=== PATIENT | male | born 1990 | race Two or more races ===

== ENCOUNTER 2018-07-20 15:15 | Emergency (ER) | payer SELFPAY ==
[~2018-07-20] VITALS: Ht 175.3 cm; Wt 63.9 kg
[2018-07-20 15:29] VITALS: BP 124/88
--- NOTE | 2018-07-20 16:00 | RAD ---
THREE VIEWS RIGHT FINGER Clinical History: RT THUMB PAIN NO KNOWN INJURY Technique: AP view of the hand, as well as lateral and oblique collimated views of the thumb were obtained. Comparison: None. Findings: A true AP view of the thumb is not provided for review. There is no acute fracture or dislocation. There is no radiopaque foreign body. The soft tissues are normal. The mineralization is normal. Joint spaces are maintained. IMPRESSION: No acute bone abnormality. Electronically signed by: Ollie Larios MD (07/20/2018 3:57 PM) [id number]
== END 2018-07-20 15:54 | disposition left against medical advice (07) ==
LOC: ER 15:15
DX: S69.91XA Unspecified injury of right wrist, hand and finger(s), initial encounter (principal); Z53.21 Procedure and treatment not carried out due to patient leaving prior to being seen by health care provider; X58.XXXA Exposure to other specified factors, initial encounter; Y93.89 Activity, other specified; Y92.89 Other specified places as the place of occurrence of the external cause; Y99.8 Other external cause status
CPT/HCPCS: 73140; 99281; 99283

== ENCOUNTER 2018-07-22 08:31 | Emergency (ER) | payer SELFPAY ==
[~2018-07-22] VITALS: Ht 175.3 cm; Wt 63.5 kg
[2018-07-22 08:37] VITALS: BP 112/74
[2018-07-22] MEDS ORDERED: SULF1TAB24 PO (08:46)
[2018-07-22] MEDS ORDERED: MELO7.5T29 PO (08:46)
--- NOTE | 2018-07-22 08:46 | PHYS DOC ---
Past History Past Medical History: Asthma Past Surgical History: Tonsillectomy, Other Alcohol Use: None Drug Use: None Adult General Chief Complaint Chief Complaint: FINGER INJURY HPI HPI Patient is a 27-year-old male who presents with right thumb pain and swelling. This has been present for the past week and getting worse over time. Patient has been trying to treat it with warm compresses without any relief. There is now purulent drainage. No trauma. No fever. Increased pain with touch.[] Review of Systems Review of Systems Constitutional: Denies fever or chills [] Eyes: Denies change in visual acuity, redness, or eye pain [] HENT: Denies nasal congestion or sore throat [] Respiratory: Denies cough or shortness of breath [] Cardiovascular: No chest pain or palpitations[] GI: Denies abdominal pain, nausea, vomiting, bloody stools or diarrhea [] : Denies dysuria or hematuria [] Musculoskeletal: Denies back pain, see history of present illness[] Integument: Denies rash, see history of present illness[] Neurologic: Denies headache, focal weakness or sensory changes [] Endocrine: Denies polyuria or polydipsia [] All other systems were reviewed and found to be within normal limits, except as documented in this note. Allergies Allergies Allergies Coded Allergies Type Severity Reaction Last Updated Verified No Known Drug Allergies 07/20/18 No Physical Exam Physical Exam Constitutional: Well developed, well nourished, no acute distress, non-toxic appearance. [] HENT: Normocephalic, atraumatic, bilateral external ears normal, oropharynx moist, no oral exudates, nose normal. [] Eyes: PERRLA, EOMI, conjunctiva normal, no discharge. [] Neck: Normal range of motion, no tenderness, supple, no stridor. [] Cardiovascular:Heart rate regular rhythm, no murmur [] Lungs & Thorax: Bilateral breath sounds clear to auscultation [] Abdomen: Not examined[] Skin: Warm, dry, no erythema, no rash. [] Back: No tenderness, no CVA tenderness. [] Extremities: no cyanosis, no clubbing, ROM intact. Patient's right thumb has edema and erythema along the ulnar aspect of the nail bed with purulent drainage. Flexor mechanism and extensor mechanism is intact. Patient is distal neurovascularly intact.. [] Neurologic: Alert and oriented X 3, normal motor function, normal sensory function, no focal deficits noted. [] Psychologic: Affect normal, judgement normal, mood normal. [] EKG EKG [] Radiology/Procedures Radiology/Procedures [] Course & Med Decision Making Course & Med Decision Making Pertinent Labs and Imaging studies reviewed. (See chart for details) Medical decision making: Patient appears to have a paronychia that is failing conservative outpatient therapy. We'll start him on antibiotics. Patient does not appear to be toxic and has no evidence of neurovascular compromise. Patient had an x-ray performed 2 days ago that was negative[] Dragon Disclaimer Dragon Disclaimer This electronic medical record was generated, in whole or in part, using a voice recognition dictation system. Departure Departure: Impression: Primary Impression: Paronychia Disposition: HOME, SELF-CARE Condition: IMPROVED Referrals: PCP,FIDELINA (PCP) Patient Instructions: Paronychia Additional Instructions: Follow-up with your regular doctor in 2 days. If you do not have regular doctor list of local clinics will be provided for you. Take the medication as prescribed. Return to the ER if worsening pain, or any other concerns. Scripts Meloxicam (MELOXICAM) 7.5 Mg Tablet 7.5 MG PO DAILY for PAIN, #20 TAB Prov: ROMÁN SHOEMAKER DO 07/22/18 Sulfamethoxazole/Trimethoprim (BACTRIM DS TABLET) 1 Each Tablet 1 TAB PO BID for paronychia, #20 TAB Prov: ROMÁN SHOEMAKER DO 07/22/18 ROMÁN SHOEMAKER DO Jul 22, 2018 08:46
== END 2018-07-22 08:56 | disposition home or self-care (01) ==
LOC: ER 08:31
DX: L03.011 Cellulitis of right finger (principal); J45.909 Unspecified asthma, uncomplicated
CPT/HCPCS: 99283